=== PATIENT | female | born 1985 | race Caucasian/White ===

== ENCOUNTER 2022-02-27 14:15 | Emergency (ER) | payer OTHER ==
[~2022-02-27] VITALS: Ht 165.1 cm; Wt 97.0 kg
[2022-02-27 15:33] LABS: BASO # 0.1 10^3/uL (0.0-0.2); BASO % 0.5 % (0.0-1.0); EOS # 0.1 10^3/uL (0.0-0.5); EOS % 0.7 % (0.0-3.0); HEMATOCRIT 39.8 % (36.0-47.0); HEMOGLOBIN 14.1 g/dl (12.0-15.5); LYMPH # 1.5 10^3/uL (1.5-5.0); LYMPH % 13.5 % (24.0-44.0); MEAN CORPUSCULAR HEMOGLOBIN 30.5 pg (27.0-33.0); MEAN CORPUSCULAR HGB CONC 35.4 g/dl (32.0-36.5); MONO # 0.6 10^3/uL (0.0-0.8); MONO % 5.5 % (2.0-8.0); NEUTROPHILS # 9.1 10^3/uL (1.5-8.5); NEUTROPHILS % 79.5 % (36.0-66.0); PLATELET COUNT, AUTOMATED 271 10^3/uL (150-450); RED BLOOD COUNT 4.63 10^6/uL (4.00-5.40); WHITE BLOOD COUNT 11.4 10^3/uL (4.0-10.0)
[2022-02-27 16:02] LABS: BLOOD UREA NITROGEN 15 MG/DL (7-18); CALCIUM LEVEL 9.9 MG/DL (8.5-10.1); CARBON DIOXIDE LEVEL 26 MEQ/L (21-32); CHLORIDE LEVEL 110 MEQ/L (98-107); GLOMERULAR FILTRATION RATE > 60.0 (>60); GLUCOSE, FASTING 116 MG/DL (70-100); POTASSIUM SERUM 4.1 MEQ/L (3.5-5.1); SODIUM LEVEL 142 MEQ/L (136-145)
[2022-02-27 16:19] LABS: HCG, SERUM QUALITATIVE NEGATIVE (NEGATIVE)
[2022-02-27] MEDS ORDERED: NS 1,000 ML IV ONE (18:00)
[2022-02-27 18:20] LABS: ALBUMIN 3.7 GM/DL (3.2-5.2); ALT/SGPT 29 U/L (12-78); BILIRUBIN,DIRECT 0.2 MG/DL (0.0-0.2); BILIRUBIN,TOTAL 0.6 MG/DL (0.2-1.0); LIPASE 167 U/L (73-393); TOTAL PROTEIN 7.5 GM/DL (6.4-8.2)
[2022-02-27 19:34] LABS: CK-MB VALUE MASS < 1.0 NG/ML (<3.6); CPK CREATINE PHOSPHOKINASE 66 U/L (26-192); MB/CK RELATIVE INDEX 1.52 (< OR =4)
[2022-02-27 20:16] VITALS: BP 129/84
== END 2022-02-27 20:19 | disposition home or self-care (01) ==
LOC: M ED 14:15
DX: R55 Syncope and collapse (principal); R03.0 Elevated blood-pressure reading, without diagnosis of hypertension